=== PATIENT | male | born 1970 | race Caucasian/White ===

== ENCOUNTER 2021-06-07 17:23 | Outpatient (CLI) | payer BC, SELFPAY ==
[2021-06-07 18:31] LABS: SARS-CoV-2 Ag Negative (Negative)
[2021-06-07 19:25] LABS: SARS-CoV-2 RNA PCR Negative (Negative)
== END 2021-06-07 17:24 | disposition home or self-care (01) ==
LOC: CHSLAB 17:28
PROVIDERS: PCP Family Medicine; Visit Provider Family Medicine
DX: Z20.822 Contact with and (suspected) exposure to COVID-19 (principal)
CPT/HCPCS: 87426; C9803; U0003; U0005

== ENCOUNTER 2022-04-19 15:56 | Outpatient (RCR) | payer BC, SELFPAY ==
--- NOTE | 2022-04-19 16:56 | PTOPEVAL ---
Thank you for referring Jules Larios to [facility].? The patient is scheduled to be seen for therapy? ____x/week for ___ weeks. Please review, sign, date and return this plan of care JAYCOB. I agree with and certify that the following plan of care is medically necessary. Referring Physician Date Admitting Provider: Attending Provider: Lilliam Hare, [employer] CHECKOUT CLERK Referring Provider: *PT Outpatient Evaluation Start: 04/19/22 16:03 Freq: Status: Active Protocol: Document 04/19/22 16:05 [facility] (Rec: 04/19/22 16:55 [facility] [id number]) Therapy Assessment Status Assessment Status Assessment Status Evaluation Evaluation Information Problem Diagnosis L RTC tear Onset 04/13/22 Additional Evaluation Detail quick dash = 15% functionally declined Subjective Information patient reports he injured the Query Text:As Reported By Patient/ L shoulder with increased Family activity/repetitions. he reports no specific injury. 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 he reports during after one stent of several days and hours worked last year he has not felt right since. he reports the pain is in the L shoulder down the outside of the L upper arm. he reports at times it will involve the shoulder blade. he reports the pain is worse with random movements. he reports the shoulder feels like it will get pinched at times, especially towards the end of the day of work and using the arm. he reports he has decreased pain with NSAIDS and rest. he reports he has had no mri, but has had an xray. he reports he had an injection into the L shoulder around 04/13/22. he reports the injection has helped thus far. 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 he would like to get back to work without pain. he also reports he would like to
== END 2022-04-25 10:03 | disposition home or self-care (01) ==
LOC: CHSPT 15:56
PROVIDERS: PCP Family Medicine; Visit Provider Nurse Practitioner Family
DX: M75.102 Unspecified rotator cuff tear or rupture of left shoulder, not specified as traumatic (principal)
CPT/HCPCS: 97014; 97110; 97140; 97161; G0283

== ENCOUNTER 2023-11-01 10:12 | Outpatient (CLI) | payer BC, SELFPAY ==
[2023-11-01 10:29] LABS: Basophils Absolute Auto 0.04 K/mm3 (0.00-0.10); Basophils Percent Auto 0.6 % (0.0-1.0); Eosinophils Absolute Auto 0.07 K/mm3 (0.02-0.50); Hematocrit 50.2 % (40.0-54.0); Hemoglobin 17.1 g/dL (14.0-18.0); Immature Granulocyte Absolute 0.01 K/mm3 (0.00-0.00); Immature Granulocyte Percent A 0.1 % (0.0-0.0); Lymphocytes Absolute Auto 1.79 K/mm3 (1.10-4.50); Lymphocytes Percent Auto 26.8 % (18.0-42.0); Mean Corpuscular HGB Conc 34.1 g/dL (32.0-36.0); Mean Corpuscular Hemoglobin 30.5 pg (27.0-31.0); Mean Corpuscular Volume 89.5 fL (78.0-102.0); Mean Platelet Volume 8.6 fl (8.7-11.0); Monocytes Absolute Auto 0.54 K/mm3 (0.10-0.90); Monocytes Percent Auto 8.1 % (2.0-11.0); Neutrophils Absolute Auto 4.2 K/mm3 (1.7-7.2); Neutrophils Percent Auto 63.4 % (50.0-70.0); Platelet Count Result 289 K/mm3 (150-420); Red Blood Count 5.61 M/mm3 (4.70-6.10); Red Cell Distribution Width 11.9 % (11.6-14.4); White Blood Count 6.7 K/mm3 (4.8-10.8)
[2023-11-01 11:10] LABS: Alanine Aminotransferase 69 U/L (16-63); Albumin Level 3.9 g/dL (3.4-5.0); Alkaline Phosphatase 62 U/L (46-116); Anion Gap 7 mmol/L (8-16); Aspartate Amino Transferase 39 U/L (15-37); Bilirubin,Total 0.6 mg/dL (0.00-1.00); Blood Urea Nitrogen 10 mg/dL (7-18); Carbon Dioxide 29 mmol/L (21-32); Chloride 102 mmol/L (98-108); Estimated Glomerular Filt Rate > 60; Glucose 97 mg/dL (70-99); Osmolality Calculated 285 mOsm/kg (285-295); Potassium 4.4 mmol/L (3.5-5.1); Sodium 138 mmol/L (136-145); Total Protein 7.5 g/dL (6.4-8.2)
[2023-11-05 16:13] LABS: Testosterone Free 250.8 pg/mL (35.0-155.0); Testosterone Total 1327 ng/dL (250-1100)
== END 2023-11-01 10:13 | disposition home or self-care (01) ==
PROVIDERS: PCP Family Medicine; Visit Provider Physician Assistant
DX: E29.1 Testicular hypofunction (principal); R10.32 Left lower quadrant pain
CPT/HCPCS: 36415; 80053; 84402; 84403; 85025

== ENCOUNTER 2024-04-12 08:25 | Outpatient (CLI) | payer BC, SELFPAY ==
--- NOTE | ~2024-04-12 | US_ITS ---
Renal-Bladder ultrasound Clinical History: Urinary hesitancy Technique: Real-time sonographic imaging of the kidneys and urinary bladder was performed. Findings: The right kidney measures 10.6 cm in length and the left kidney measures 11.6 cm. There is no hydronephrosis or renal calculus identified. Renal cortical echogenicity is increased. Right upper pole renal cyst present. The urinary bladder is moderately distended at the time of this exam. No intraluminal echoes are iden tified. No abnormal wall thickening is seen. Impression: Echogenic kidneys suggest chronic medical renal disease. Reviewed, dictated and finalized at location . Impression: Echogenic kidneys suggest chronic medical renal disease.
== END 2024-04-12 08:26 | disposition home or self-care (01) ==
PROVIDERS: PCP Family Medicine; Visit Provider Physician Assistant
DX: R39.11 Hesitancy of micturition (principal)
CPT/HCPCS: 76775

== ENCOUNTER 2024-04-15 16:57 | Outpatient (CLI) | payer BC, SELFPAY ==
[2024-04-15 17:32] LABS: Basophils Absolute Auto 0.05 K/mm3 (0.00-0.10); Basophils Percent Auto 0.7 % (0.0-1.0); Eosinophils Absolute Auto 0.09 K/mm3 (0.02-0.50); Eosinophils Percent Auto 1.3 % (1.0-6.0); Hematocrit 49.7 % (40.0-54.0); Hemoglobin 17.1 g/dL (14.0-18.0); Immature Granulocyte Absolute 0.02 K/mm3 (0.00-0.00); Immature Granulocyte Percent A 0.3 % (0.0-0.0); Lymphocytes Absolute Auto 2.34 K/mm3 (1.10-4.50); Lymphocytes Percent Auto 33.9 % (18.0-42.0); Mean Corpuscular HGB Conc 34.4 g/dL (32-36); Mean Corpuscular Hemoglobin 31.3 pg (27.0-31.0); Mean Corpuscular Volume 90.9 fL (78.0-102.0); Mean Platelet Volume 8.9 fl (8.7-11.0); Monocytes Absolute Auto 0.56 K/mm3 (0.10-0.90); Monocytes Percent Auto 8.1 % (2.0-11.0); Neutrophils Absolute Auto 3.85 K/mm3 (1.70-7.20); Neutrophils Percent Auto 55.7 % (50.0-70.0); Platelet Count Result 283 K/mm3 (150-420); Red Blood Count 5.47 M/mm3 (4.70-6.10); White Blood Count 6.9 K/mm3 (4.8-10.8)
[2024-04-15 17:39] LABS: Creatinine Urine 269.74 mg/dL (40-278); MALB Creatinine Ratio 5.8 mg/g (0-30); Microalbumin Urine Random 15.7 mg/L
[2024-04-15 18:15] LABS: Alanine Aminotransferase 42 U/L (16-63); Albumin Level 4.2 g/dL (3.4-5.0); Alkaline Phosphatase 61 U/L (46-116); Anion Gap 6 mmol/L (4-12); Aspartate Amino Transferase 32 U/L (15-37); Bilirubin,Total 0.6 mg/dL (0.00-1.00); Blood Urea Nitrogen 20 mg/dL (7-18); Calcium 9.4 mg/dL (8.5-10.1); Carbon Dioxide 29 mmol/L (21-32); Chloride 100 mmol/L (98-108); Cholesterol 189 mg/dL (0-200); Estimated Glomerular Filt Rate > 60; Glucose 93 mg/dL (70-99); HDL Direct 39 mg/dL (40-60); LDL Cholesterol Calculated 118 mg/dL (<130); Osmolality Calculated 282 mOsm/kg (285-295); Potassium 4.2 mmol/L (3.5-5.1); Prostate Specific Antigen 2.4 ng/mL (< OR = 4.0); Sodium 135 mmol/L (136-145); Total Protein 7.4 g/dL (6.4-8.2); Triglycerides 161 mg/dL (0-150); Vitamin B12 273 pg/mL (193-986)
[2024-04-16 08:09] LABS: Vitamin D 25 Hydroxy 36 ng/mL (30-100)
[2024-04-18 17:58] LABS: Testosterone Free 38.1 pg/mL (35.0-155.0); Testosterone Total 247 ng/dL (250-1100)
== END 2024-04-15 16:58 | disposition home or self-care (01) ==
LOC: CHSLAB 17:02
PROVIDERS: PCP Family Medicine; Visit Provider Physician Assistant
DX: R39.11 Hesitancy of micturition (principal); R79.89 Other specified abnormal findings of blood chemistry; E55.9 Vitamin D deficiency, unspecified; E29.1 Testicular hypofunction; E78.00 Pure hypercholesterolemia, unspecified; Z12.5 Encounter for screening for malignant neoplasm of prostate
CPT/HCPCS: 36415; 80053; 80061; 82043; 82306; 82607; 84153; 84402; 84403; 85025; G0103